=== PATIENT | female | born 1975 | race Caucasian/White ===

== ENCOUNTER → 2020-09-11 13:44 | Outpatient (BNVA) | payer MEDICAID, SELFPAY | PROVIDERS: PCP Internal Medicine Geriatric Medicine; Visit Provider Nurse Practitioner Family | DX: M46.1 Sacroiliitis, not elsewhere classified (principal); Z79.899 Other long term (current) drug therapy | CPT/HCPCS: 99212 ==

== ENCOUNTER 2021-01-08 10:49 | Day surgery (SDC) | payer MEDICAID, SELFPAY ==
--- NOTE | 2021-01-07 15:44 | HO.ANESPROP2 ---
Documented by User: Lupis Colindres 01/07/21 15:45 HPI - Anesthesia Eval Consult details Narrative: 45yo F for Left Sacroiliac Joint Steroid Injection PMFSH Active Problems Active Problems: All Active Problems (Updated 09/11/20 @ 14:33 by Ashley Jensen NP) Sacroiliitis (Acute) Past Medical History Medical History (Updated 01/08/21 @ 11:44 by Peggy Madrid RN) Carpal tunnel syndrome on right No significant past medical history Surgical History Surgical History (Updated 01/08/21 @ 11:44 by Peggy Madrid RN) History of appendectomy Social History Social History Patient Tobacco Use Status: Never used Tobacco Use of substances other than those prescribed or required for medical reasons: Yes Are you DNR?: No Advance Directives: No Advance Directives Information Provided: Yes Recently lost weight without trying: No Nutrition Risks: No Nutritional Risk Patient : No Meds Allergies Allergy/AdvReac Type Severity Reaction Status Date / Time No Known Allergies Allergy Verified 09/11/20 13:56 Exam Exam Date and Time: January 07, 2021 1544 Assessment and Plan Assessment Anesthesia Assessment: Chart Reviewed Documented by User: Jose Antonio Damon MD 01/08/21 14:26 PMFSH Past Medical History Medical History (Updated 01/08/21 @ 11:44 by Peggy Madrid RN) Carpal tunnel syndrome on right No significant past medical history Family History Family history of problems with anesthesia: No Surgical History Surgical History (Updated 01/08/21 @ 11:44 by Peggy Madrid RN) History of appendectomy History of Problems with Anesthesia: No Social History Social History Patient Tobacco Use Status: Never used Tobacco Use of substances other than those prescribed or required for medical reasons: Yes Are you DNR?: No Advance Directives: No Advance Directives Information Provided: Yes Recently lost weight without trying: No Nutrition Risks: No Nutritional Risk Patient : No Meds Allergies Allergy/AdvReac Type Severity Reaction Status Date / Time No Known Allergies Allergy Verified 09/11/20 13:56 Exam Airway Mallampati Class: I TM Dist: >3cm Neck ROM: Full Loose/Missing/Broken Teeth: No Heart: ok Lungs: ok Assessment and Plan Assessment Anesthesia Assessment: Anesthesia Plan Discussed and Chart Reviewed Final Anesthetic Review NPO: Yes ASA Class: I Final Preanesthetic Review: No Changes in Pt Med Stat, Meds/Allgs Chart Reviewed, Consent Obtained/Reviewed and Anes Risks/Benef Reviewed Patient Risk: Low Anesthetic Plan Anesthetic Plan: MAC: and Agree w/ Assess. and Plan Disposition: Standard PACU
--- NOTE | ~2021-01-08 | FL_ITS ---
EXAMINATION: XR FLUOROSCOPY WITH IMAGES CLINICAL INFORMATION: Pain. Left SI joint injection. COMPARISON: Fluoroscopic spot views 05/14/2019 TECHNIQUE: Fluoroscopy performed by Dr. Jorge Howell. Fluoroscopy time: 0.1 minutes DAP: 1.1 Gycm2 Images: 1 FINDINGS: There is spinal needle overlying lower left SI joint. There is contrast in the periarticular soft tissues with probable early intra-articular contrast. FL/FL guidance in OR IMPRESSION: Fluoroscopy for pain management procedure.
[2021-01-08 11:47] VITALS: BMI 24.1
[2021-01-08 11:52] VITALS: BP 108/72; PULSE 60; RESP 16; TEMP 36.6; O2SAT 99
[2021-01-08] MEDS: Lactated Ringers 1,000 ML 100 ML IVCONT (12:06)
[2021-01-08 12:07] LABS: UPreg QC Valid YES; Urine Pregnancy NEGATIVE (NEGATIVE)
--- NOTE | 2021-01-08 14:14 | MHC.SHP ---
Pre-Procedural Eval Section A Date of Service: 01/08/21 Section B Chief Complaint: Sacroiliitis Details of Present Illness: As above Relevant Family History (Specify if Yes): No Relevant Social History: None Present Medications: None Medical History: No relevant PMH History of Previous Operations: No relevant previous surgery Allergies: Allergies Allergy/AdvReac Type Severity Reaction Status Date / Time No Known Allergies Allergy Verified 09/11/20 13:56 Review of Systems Sugical H&P ROS: Negative: Constitution, Cardiovascular, Respiratory, Neurological, Psychiatric, Hem-Onc, Allergic/Immunologic, Gastrointestinal, Genitourinary, Musculoskeletal, Integumentary, Endocrine and Eyes/Ears/Nose/Throat Exam Surgical H&P Exam: Normal: HEENT, Normal: Heart, Normal: Lungs, Normal: Extremities, Normal: Abdomen, Normal: Skin and Normal: Neurological Plan Diagnosis/Plan: Unchanged I have reviewed the history and physical and performed a pertinent physical examination on my patient. No changes have occurred unless specified.
--- NOTE | 2021-01-08 14:49 | P.BOP_ITS ---
Brief Operative Note Date of Service: 01/08/21 Pre-op diagnosis: Sacroiliitis Post-op diagnosis: same Procedure: Sacroiliac joint injection left Implants: None Surgeon: Jorge Howell MD Anesthesia: MAC Was an Director Speech And Hearing used for this Procedure?: No Estimated blood loss (mL): 0 Pathology: none sent Condition: stable Disposition: PACU
--- NOTE | 2021-01-08 14:51 | P.OP_ITS ---
Operative Note Operative Note Date of Service: 01/08/21 Narrative: Meg is very pleasant 42 is 5 years old female who came today to the operating room with complains on lower back pain in the left side. She was diagnosed with sacroiliitis today he she came here to have sacroiliac joint inj ection on left under sedation. Informed consent was obtained and after that the patient came to the operating room she was positioned prone on operating table [place] side of physiology monitors were applied and patient was moderately sedated. Time-out was performed delineating correct name and date of of the patient, site and side of the procedure, allergies, need for DVT prophylaxis, ne ed of antibiotics which is none. After that sterilely draped C-arm was brought over the operating field and sq picture left sacroiliac joint was demonstrated on the screen , the C-arm was tilted contralateral to the right and slightly to the foot to accommodate patient's pronounced lordosis. Significant left sacroiliac joint instability with big gap between sacral and iliac bone was noted on the screen. Local anesthetic was injected 3 cm medial to the projection of the sacroiliac joint silhouette at its lower portion. After that 22 gauge 3-1/2 inch needle was driven to were the sacroiliac joint in tunnel vision fashion. After needle entered the joint thrombosis sensation was felt the needle penetrating joint capsule. After that small amount of the contrast was injected into the needle demonstrating intra-articular spread of the contrast and slight periarticular spread of the contrast. Upon completion of the contrast injection 4 cc of bupivacaine mixed with Kenalog 40 mg was injected into the needle. After that the needle was removed sterile dressing was applied patient tolerated procedure well she was awaken taking out of the the operating room to recovery room where she recovered uneventfully she went home without immediate complications.
[2021-01-08 14:57] VITALS: BP 100/80; PULSE 84; RESP 18; TEMP 36.3; O2SAT 99
[2021-01-08 15:10] VITALS: BP 111/75; PULSE 74; RESP 16; O2SAT 97
== END 2021-01-08 15:19 ==
LOC: HO.SSS 10:49
PROVIDERS: Nurse Practitioner; PCP Internal Medicine Geriatric Medicine; Visit Provider Anesthesiology
PROC: 3E0U33Z Introduction of Anti-inflammatory into Joints, Percutaneous Approach (ICD-10-PCS; CPT 27096; principal; 2021-01-08 12:10)
DX: M46.1 Sacroiliitis, not elsewhere classified (principal); M53.2X8 Spinal instabilities, sacral and sacrococcygeal region; M54.5 Low back pain
CPT/HCPCS: 27096; 81025; J2250; J3010; J3300; Q9967

== ENCOUNTER → 2021-05-24 13:49 | Outpatient (BNVA) | payer MEDICAID, SELFPAY | PROVIDERS: PCP Internal Medicine Geriatric Medicine; Referring Provider Internal Medicine Geriatric Medicine; Visit Provider Internal Medicine | DX: R07.2 Precordial pain (principal) | CPT/HCPCS: 93005; 99202 ==

== ENCOUNTER 2022-04-14 10:58 | Outpatient (REF) | payer MEDICAID, SELFPAY ==
--- NOTE | ~2022-04-14 | XR_ITS ---
EXAMINATION: XR FACIAL BONES CLINICAL INFORMATION: Injury and pain left side of facial bones. Trauma. Headache. COMPARISON: None TECHNIQUE: 3 views of the facial bones were obtained. FINDINGS: There is question of a fracture of the floor of the left orbit. This is seen on the Workman view only. No other fracture. No dislocation. Visualized paranasal sinuses are clear. XR/XR facial bones <3V IMPRESSION: Question left orbital floor fracture. This could be better evaluated with CT of the facial bones if clinically indicated. Findings will be communicated by the [place] work flow gas or water meter installer.
== END 2022-04-14 10:59 | disposition home or self-care (01) ==
LOC: HO.XRAY 10:58
PROVIDERS: PCP Internal Medicine Geriatric Medicine; Visit Provider Internal Medicine Geriatric Medicine
DX: R51.9 Headache, unspecified (principal); Z87.828 Personal history of other (healed) physical injury and trauma
CPT/HCPCS: 70140

== ENCOUNTER 2023-09-07 13:28 | Outpatient (REF) | payer MEDICAID, SELFPAY ==
--- NOTE | ~2023-09-07 | XR_ITS ---
EXAMINATION: XR LEFT SHOULDER XR CERVICAL SPINE CLINICAL INFORMATION: Severe left arm/shoulder pain. COMPARISON: None available. TECHNIQUE: AP, Grashey, transscapular Y and axillary views of the left shoulder were obtained. AP, lateral, open-mouth odontoid and bilateral oblique views of the cervical spine were obtained. FINDINGS: Cervical spine: The cervical spine is imaged through the T1 vertebral body. There is relative straightening of the cervical lordosis. Vertebral body heights are maintained. There is marked intervertebral disc space narrowing at C6-C7 with anterior and posterior marginal osteophytes. There is left neural foraminal narrowing at this level. Lateral masses are symmetric. Prevertebral soft tissues are within normal limits. Left shoulder: Acromioclavicular and glenohumeral alignment is maintained. No displaced fracture or dislocation. No abnormal soft tissue calcifications. XR/XR shoulder LT min 2V IMPRESSION: Marked degenerative disc disease at C6-C7 with left neural foraminal narrowing.
--- NOTE | ~2023-09-07 | XR_ITS ---
EXAMINATION: XR LEFT SHOULDER XR CERVICAL SPINE CLINICAL INFORMATION: Severe left arm/shoulder pain. COMPARISON: None available. TECHNIQUE: AP, Grashey, transscapular Y and axillary views of the left shoulder were obtained. AP, lateral, open-mouth odontoid and bilateral oblique views of the cervical spine were obtained. FINDINGS: Cervical spine: The cervical spine is imaged through the T1 vertebral body. There is relative straightening of the cervical lordosis. Vertebral body heights are maintained. There is marked intervertebral disc space narrowing at C6-C7 with anterior and posterior marginal osteophytes. There is left neural foraminal narrowing at this level. Lateral masses are symmetric. Prevertebral soft tissues are within normal limits. Left shoulder: Acromioclavicular and glenohumeral alignment is maintained. No displaced fracture or dislocation. No abnormal soft tissue calcifications. XR/XR cervical spine 4V IMPRESSION: Marked degenerative disc disease at C6-C7 with left neural foraminal narrowing.
== END 2023-09-07 13:29 | disposition home or self-care (01) ==
LOC: HO.HHCX 13:28
PROVIDERS: Visit Provider Pediatrics
DX: M54.2 Cervicalgia (principal)
CPT/HCPCS: 72050; 73030

== ENCOUNTER 2023-10-07 13:06 | Outpatient (REF) | payer MEDICAID, SELFPAY ==
--- NOTE | ~2023-10-07 | MR_ITS ---
EXAMINATION: MR CERVICAL SPINE WITHOUT CONTRAST CLINICAL INFORMATION: 47-year-old with self-reported cervical pain, with left-sided radicular symptoms. COMPARISON: None available. TECHNIQUE: MRI of the cervical spine was obtained using routine sequences without contrast. TECHNICAL NOTE: Motion limited exam. FINDINGS: ALIGNMENT: There is straightening of the cervical spine, which is nonspecific. There is no spondylolisthesis or retrolisthesis. CRANIOCERVICAL JUNCTION/C1-C2 ARTICULATIONS: Intact and aligned. VISUALIZED INTRACRANIAL STRUCTURES: Within normal limits. VERTEBRAL BODIES: Vertebral body heights are well-maintained. DISC SPACES AND ENDPLATES: [id number] disc space height loss is noted at C6-C7 with moderate anterior marginal spondylosis. Mild disc volume loss noted at C5-C6 with mild anterior marginal spondylosis. Minor anterior marginal spondylosis at C4-C5. Loss of T2-weighted signal from the intervertebral discs noted mainly between C4-C5 and C6-C7 inclusive consistent with discogenic degenerative changes. Tiny Schmorl's nodes noted at C6-C7. BONE MARROW: Type I degenerative marrow signal changes noted asymmetric to the left at C6-C7. A 1.2 cm benign vertebral hemangioma within the T2 vertebral body. No suspicious marrow replacing process or bone marrow edema. C2-C3: No disc herniation or canal stenosis. No significant DJD or neural foraminal stenosis. C3-C4: No disc herniation or canal stenosis. No significant DJD or foraminal stenosis. C4-C5: Shallow central disc protrusion with minimal indentation of the ventral thecal sac without cord impingement or canal stenosis. No significant DJD or neural foraminal stenosis. C5-C6: Broad-based disc osteophyte complex noted with flattening of the ventral dural sac asymmetric to the left without cord impingement. Mild ligamentum flavum thickening is noted with mild spinal canal stenosis. Mild uncovertebral spurring is noted bilaterally without significant facet joint arthropathy. No significant neural foraminal stenosis. C6-C7: Broad-based disc osteophyte complex noted with flattening of the ventral dural sac without cord compression. Mild ligamentum flavum thickening is noted with moderate spinal canal stenosis. There is uncovertebral spurring left more than right and minor facet arthropathy with mild right and [id number] left-sided neural foraminal stenosis. C7-T1: No disc herniation or canal stenosis. No significant DJD or neural foraminal stenosis. SPINAL CORD: Limited assessment due to motion artifact. No definite focal lesion, edema or syrinx identified. Normal spinal cord caliber. EXTRACRANIAL SOFT TISSUES: The visualized extracranial head/neck soft tissues are unremarkable within the limitations of the study. Signal voids are seen within the visualized major neck vessels. No prevertebral soft tissue edema. MR/MR cervical spine wo con IMPRESSION: 1. Straightening of the cervical spine with discogenic degenerative changes primarily at C6-C7 and to a lesser degree at C5-C6 with spondylosis at these levels. 2. Disc osteophyte complex at C6-C7 with moderate spinal canal stenosis and disc osteophyte complex at C5-C6 mild spinal canal stenosis at C5-C6 without cord impingement. 3. Uncovertebral arthrosis at C6-C7 with [id number] left-sided and mild right-sided neural foraminal stenosis at this level. 4. Shallow central disc protrusion at C4-C5 without cord impingement or canal stenosis. 5. Motion limited exam.
== END 2023-10-07 13:07 | disposition home or self-care (01) ==
LOC: HO.MRI 13:06
PROVIDERS: PCP Internal Medicine Geriatric Medicine; Visit Provider Internal Medicine Geriatric Medicine
DX: M54.12 Radiculopathy, cervical region (principal); M47.12 Other spondylosis with myelopathy, cervical region; R29.898 Other symptoms and signs involving the musculoskeletal system
CPT/HCPCS: 72141

== ENCOUNTER 2024-02-23 10:43 | Outpatient (REF) | payer MEDICAID, SELFPAY ==
--- NOTE | ~2024-02-23 | MM_ITS ---
EXAMINATION: MM SCREENING DIGITAL BREAST TOMOSYNTHESIS, BILATERAL CLINICAL INFORMATION: Screening. Asymptomatic. COMPARISON: Mammography: Comparison is made with available priors TECHNIQUE: Digital breast tomosynthesis is performed in both the craniocaudal and mediolateral oblique views along with computer-aided detection (CAD). Synthesized 2D images are generated from the tomosynthesis. FINDINGS: The breasts are heterogeneously dense, which may obscure small masses (ACR BI-RADS breast composition Category c). There are no significant masses, abnormal calcifications, or other abnormalities. MM/MM tomosynthesis screening BI IMPRESSION: No mammographic evidence of malignancy. ASSESSMENT: BI-RADS BI-RADS 1 - Negative RECOMMENDATION: Routine annual mammography screening. 1 year F/U This examination should not preclude the clinical evaluation of a suspicious palpable abnormality. This patient's information was entered into a reminder system with a target due date for their next mammogram. Electronically signed by: Jalyn Muhammad DO 03/15/2024 10:46 PM EDT
== END 2024-02-23 10:44 | disposition home or self-care (01) ==
LOC: HO.MAMMO 10:43
PROVIDERS: PCP Internal Medicine Geriatric Medicine; Visit Provider Internal Medicine Geriatric Medicine
DX: Z12.31 Encounter for screening mammogram for malignant neoplasm of breast (principal)
CPT/HCPCS: 77063; 77067

== ENCOUNTER → 2024-02-23 11:00 | Outpatient (BNV) | payer MEDICAID, SELFPAY | PROVIDERS: PCP Internal Medicine Geriatric Medicine; Visit Provider Internal Medicine | DX: Z12.31 Encounter for screening mammogram for malignant neoplasm of breast (principal) | CPT/HCPCS: 77063; 77067 ==

== ENCOUNTER 2024-12-19 09:23 | Outpatient (AMB) | payer MEDICAID, SELFPAY ==
--- NOTE | 2024-12-19 09:25 | A.OFFVIS_ITS ---
Vital Signs 12/19/24 09:30 Height 5 ft 4 in Weight 128 lb 6 oz BMI 22.0 BP 118/75 Blood Pressure Location Rt brachial Position Sitting Pulse 65 Pulse Source Pulse Oximeter Pulse Oximetry (%) 100 Oxygen Delivery Method Room Air Intake Visit Reasons: Left SI Joint pain Power Grader Operator Required: Yes Power Grader Operator Language: Founder And Chief Executive Officer Services: Power Grader Operator Present Power Grader Operator Name: Ninoska Information Interpreted: non-clinical & clinical Accompanied by: Self / Same As Patient Allergies No Known Allergies Allergy (Verified 12/19/24 09:33) HPI Comments Details: The patient is a 49-year-old female presenting with recurrence of pain associated with sacroiliac joint dysfunction. She was last seen in our office in [address] Howell and received a diagnostic injection in the left sacroiliac joint approximately 4 years ago, which provided significant pain relief until recently. 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 The pain is described as constant, aching, tight, and sometimes sharp, with a severity of 8 out of 10. She denies any history of diabetes and has not engaged in physical therapy or post acute care nurse practitioner previously. The patient also has a mild leg length discrepancy, with the left leg being longer, which may contribute to her sacroiliac joint pain. She has not received any chiropractic adjustments or massage therapy to address this issue. Additionally, the patient has neck pain, with cervical osteophytes and arthritis in the neck, which have not been addressed yet. - Onset: Recurrence of pain after 4 years of relief from prior injection - Quality: Constant, aching, tight, sometimes sharp, throbbing, dull - Location: Left buttock radiating to left lateral hip up to the knee levels - Severity: 8 out of 10 - Exacerbating factors: Prolonged sitting, such as during work as a school standards coach - Affect: Pain impacts daily activities, particularly driving - Analgesia: No current pain medications used, pain level at 8 out of 10 - Adverse Effects: None reported - Activities of Daily Living: Pain increases with prolonged sitting, affecting work as a school standards coach - Aberrant Drug Related Behaviors: None reported Past Procedures: 01/08/21: Left Diagnostic SIJ injection-100% pain relief for [address] Howell 01/08/21: Meg is very pleasant 42 is 5 years old female who came today to the operating room with complains on lower back pain in the left side. She was diagnosed with sacroiliitis today he she came here to have sacroiliac joint injection on left under sedation. Informed consent was obtained and after that the patient came to the operating room she was positioned prone on operating table New Zealander side of physiology monitors were applied and patient was moderately sedated. Time-out was performed delineating correct name and date of of the patient, site and side of the procedure, allergies, need for DVT prophylaxis, need of antibiotics which is none. After that sterilely draped C-arm was brought over the operating field and sq picture left sacroiliac joint was demonstrated on the screen , the C-arm was tilted contralateral to the right and slightly to the foot to accommodate patient's pronounced lordosis. Significant left sacroiliac joint instability with big gap between sacral and iliac bone was noted on the screen. Local anesthetic was injected 3 cm medial to the projection of the sacroiliac joint silhouette at its lower portion. After that 22 gauge 3-1/2 inch needle was driven to were the sacroiliac joint in tunnel vision fashion. After needle entered the joint thrombosis sensation was felt the needle penetrating joint capsule. After that small amount of the contrast was injected into the needle demonstrating intra-articular spread of the contrast and slight periarticular spread of the contrast. Upon completion of the contrast injection 4 cc of bupivacaine mixed with Kenalog 40 mg was injected into the needle. After that the needle was removed sterile dressing was applied patient tolerated procedure well she was awaken taking out of the the operating room to recovery room where she recovered uneventfully she went home without immediate complications. [facility] Medical History (Updated 12/19/24 @ 22:12 by CEDRIC Low) Myofascial pain syndrome Urge incontinence of urine Cervical radiculitis Anxiety Neck pain Chest pain Pain in lower limb Edema of lower extremity Low back pain radiating to both legs Chronic pelvic pain in female Carpal tunnel syndrome on right No significant past medical history Surgical History (Updated 12/19/24 @ 09:42 by Chloe Montoya) H/O tubal ligation History of appendectomy Family History Father No problems noted. Mother No problems noted. Social History Patient Tobacco Use Status: Never used Tobacco Review of Systems Const All systems reviewed & are unremarkable except as noted in HPI and below Physical Exam Vital Signs: Last Vital Signs Pulse 65 12/19/24 09:30 BP 118/75 12/19/24 09:30 Pulse Ox 100 12/19/24 09:30 Oxygen Delivery Method Room Air 12/19/24 09:30 BMI result Body Mass Index 22.0 General: Appears afebrile. Alert and oriented. Mood and affect appropriate. Follows and participates in conversation appropriately. Respiratory effort is unlabored. No cough. Able to transition from sit to stand unassisted. Ambulates with bilaterally normal heel strike and toe off. General: Yes no CVA tenderness Back/Spine/Pelvis Other: Limited lumbar ROM due to pain. Lumbar extension reproduces mild-moderate pain, flexion and bending reproduces mild pain. Demonstrates 5/5 strength of quadriceps bilaterally as well as flexion/dorsiflexion of bilateral feet against resistance. 2+ pedal pulses bilaterally. Straight leg rise with dorsiflexion negative bilaterally. +2 patellar and achilles reflexes bilaterally. Facet loading test positive bilaterally. Left leg is mildly longer than right, pain on left buttock radiating to left side, no pain on right side, unequal leg length noted. Aba sign, Jhoan?s, Gaenslen, Pelvic compression and Stinchfield tests are positive on the left. No groin pain with I/E hip rotations. Valsalva maneuver negative. Back: no CVA tenderness Cervical Spine: cervical ROM normal, No Lhermitte's sign positive, cervical muscular tenderness, pain with cervical ROM, No Cervical spine tenderness and No step off deformity Thoracic/Lumbar Spine: thoracic and lumbar spine normal to inspection, No Thoracic/lumbar spine scar(s), Lasegue's sign negative, straight leg raise negative bilaterally, pain with thoraco-lumbar ROM, paraspinal muscle tenderness, No thoracic spinal tenderness and No lumbar spinal tenderness Sacroiliac joints: on the right nontender and on the left tender to palpation Extrem General: Yes capillary refill normal, Yes no clubbing, cyanosis or edema and Yes no calf tenderness Results Reviewed Results Reviewed: MR CERVICAL SPINE WITHOUT CONTRAST 10/07/23 CLINICAL INFORMATION: 47-year-old with self-reported cervical pain, with left-sided radicular symptoms. COMPARISON: None available. TECHNIQUE: MRI of the cervical spine was obtained using routine sequences without contrast. TECHNICAL NOTE: Motion limited exam. FINDINGS: ALIGNMENT: There is straightening of the cervical spine, which is nonspecific. There is no spondylolisthesis or retrolisthesis. CRANIOCERVICAL JUNCTION/C1-C2 ARTICULATIONS: Intact and aligned. VISUALIZED INTRACRANIAL STRUCTURES: Within normal limits. VERTEBRAL BODIES: Vertebral body heights are well-maintained. DISC SPACES AND ENDPLATES: Brzplqcu-rx-sloiug disc space height loss is noted at C6-C7 with moderate anterior marginal spondylosis. Mild disc volume loss noted at C5-C6 with mild anterior marginal spondylosis. Minor anterior marginal spondylosis at C4-C5. Loss of T2-weighted signal from the intervertebral discs noted mainly between C4-C5 and C6-C7 inclusive consistent with discogenic degenerative changes. Tiny Schmorl's nodes noted at C6-C7. BONE MARROW: Type I degenerative marrow signal changes noted asymmetric to the left at C6-C7. A 1.2 cm benign vertebral hemangioma within the T2 vertebral body. No suspicious marrow replacing process or bone marrow edema. C2-C3: No disc herniation or canal stenosis. No significant DJD or neural foraminal stenosis. C3-C4: No disc herniation or canal stenosis. No significant DJD or foraminal stenosis. C4-C5: Shallow central disc protrusion with minimal indentation of the ventral thecal sac without cord impingement or canal stenosis. No significant DJD or neural foraminal stenosis. C5-C6: Broad-based disc osteophyte complex noted with flattening of the ventral dural sac asymmetric to the left without cord impingement. Mild ligamentum flavum thickening is noted with mild spinal canal stenosis. Mild uncovertebral spurring is noted bilaterally without significant facet joint arthropathy. No significant neural foraminal stenosis. C6-C7: Broad-based disc osteophyte complex noted with flattening of the ventral dural sac without cord compression. Mild ligamentum flavum thickening is noted with moderate spinal canal stenosis. There is uncovertebral spurring left more than right and minor facet arthropathy with mild right and xiywjfjq-vh-qakydk left-sided neural foraminal stenosis. C7-T1: No disc herniation or canal stenosis. No significant DJD or neural foraminal stenosis. SPINAL CORD: Limited assessment due to motion artifact. No definite focal lesion, edema or syrinx identified. Normal spinal cord caliber. EXTRACRANIAL SOFT TISSUES: The visualized extracranial head/neck soft tissues are unremarkable within the limitations of the study. Signal voids are seen within the visualized major neck vessels. No prevertebral soft tissue edema. IMPRESSION: 1. Straightening of the cervical spine with discogenic degenerative changes primarily at C6-C7 and to a lesser degree at C5-C6 with spondylosis at these levels. 2. Disc osteophyte complex at C6-C7 with moderate spinal canal stenosis and disc osteophyte complex at C5-C6 mild spinal canal stenosis at C5-C6 without cord impingement. 3. Uncovertebral arthrosis at C6-C7 with lnsypvkl-dy-nnywow left-sided and mild right-sided neural foraminal stenosis at this level. 4. Shallow central disc protrusion at C4-C5 without cord impingement or canal stenosis. 5. Motion limited exam. Assessment & Plan Assessment & Plan (1) Sacroiliitis: Code(s): M46.1 - Sacroiliitis, not elsewhere classified Category: Medical (2) Spondylosis of lumbosacral joint: Code(s): M47.817 - Spondylosis without myelopathy or radiculopathy, lumbosacral region Category: Medical (3) Chronic low back pain: Code(s): M54.50 - Low back pain, unspecified; G89.29 - Other chronic pain Category: Medical (4) Sacroiliac joint pain: Code(s): M53.3 - Sacrococcygeal disorders, not elsewhere classified Category: Medical (5) Sacroiliitis: Code(s): M46.1 - Sacroiliitis, not elsewhere classified Category: Medical (6) Spondylosis of lumbosacral joint: Code(s): M47.817 - Spondylosis without myelopathy or radiculopathy, lumbosacral region Category: Medical (7) Chronic low back pain: Code(s): M54.50 - Low back pain, unspecified; G89.29 - Other chronic pain Category: Medical (8) Neck pain: Code(s): M54.2 - Cervicalgia Category: Medical Plan The plan includes administering a steroid injection to the left sacroiliac joint with local and fluoroscopy to provide long-term pain relief. Expectations, risks and benefits were reviewed. Patient is aware she will be contacted to schedule this procedure. The patient is advised to undergo chiropractic adjustments to address the leg length discrepancy, which may alleviate the sacroiliac joint pain. X-rays will be updated to assess the current condition of the sacroiliac joint and lumbar spine. Records from [facility] will be obtained to review past treatments and interventions. All questions and concerns have been answered and patient agreed with the treatment plan. Follow-up x-ray results/after injections and sooner as needed Patient was informed and verbally consented to the use of an ambient scribe for clinic note documentation during this visit. Orders: Orders XR lumbar spine 4V min Today G89.29 - Other chronic pain, M46.1 - Sacroiliitis, not elsewhere classified, M47.817 - Spondylosis without myelopathy or radiculopathy, lumbosacral region, M54.50 - Low back pain, unspecified XR sacroiliac joint min 3V Today M46.1 - Sacroiliitis, not elsewhere classified, M53.3 - Sacrococcygeal disorders, not elsewhere classified Referrals Chiropractic Referral G89.29 - Other chronic pain, M46.1 - Sacroiliitis, not elsewhere classified, M47.817 - Spondylosis without myelopathy or radiculopathy, lumbosacral region, M53.3 - Sacrococcygeal disorders, not elsewhere classified, M54.50 - Low back pain, unspecified Coding Level of Care Code New Pt Level 4 (92834) Diagnoses Sacroiliitis M46.1 Spondylosis of lumbosacral joint M47.817 Chronic low back pain M54.50; G89.29 Sacroiliac joint pain M53.3 Neck pain M54.2
[2024-12-19 09:30] VITALS: BP 118/75; PULSE 65; O2SAT 100; BMI 22.0
--- OUTSIDE RECORDS SUMMARY | 2024-12-19 10:22 | XMS_ITS | Encounter Summary ---
Author Organization [employer] Address [address] [place] [address] Care Team Providers Care Watermelon Inspector Name Role Phone Name, Yemi OZUNA Primary Care Provider [phone] Reason for Visit * Reason Onset Date Comments No Show 08/11/2023 Encounter Details Date Type Department Care Team ([facility] Contact Info) Description 08/11/2023 Telephone [facility]INE [address] [place] [address] Name, MD Yemi [address] [place] [address] No Show Social History Tobacco Use Types Packs/Day Years Used Date Smoking Tobacco: Never Passive Smoke Exposure: Never Smokeless Tobacco: Never Alcohol Use Standard Drinks/Week Comments Never 0 (1 standard drink = 0.6 oz pur e alcohol) Depression Answer Date Recorded Patient Health Questionnaire-9 Score 7 12/06/2022 Housing Stability Answer Date Recorded What is your housing situation today? I have tuan barone 05/01/[address] you li ve. Do you have problems with any of the following? None of the above 05/01/2023 Food Insecurity Answer Date Recorded Within the past 12 months, y ou worried that your food would run out before you got money to buy more: Never True 05/01/2023 Within the past 12 months,th e food you bought just didn't last and you didn't have enough money to get more: Never True 11/2022 Transportation Answer Date Recorded In the past 12 months, has l ack of transportation kept you from medical appts, meetings, work or from getting things needed for daily living? No 05/01/2023 Utilities Answer Date Recorded In the past 12 months, has t he electric, gas, oil or water company threatened to shut off services in your home? No 05/01/2023 Depression Answer Date Recorded Patient Health Questionnaire-2 Score 0 12/06/2022 Comments Unknown Sex and Gender Information Value Date Recorded Sex Assigned at Female 04/25/2022 10:31 AM EDT Legal Sex Female 10:31 AM EDT Gender Identity Female 04/25/2022 10:31 AM EDT Sexual Orientation Straight 04/25/2022 10 :31 AM EDT documented as of this encounter Miscellaneous Notes * Telephone Encounter - Tatianna Canada RN - 08/18/2023 4:46 PM EST TC placed to patient x 2 regarding message below. No answer. LM in both East Timorese and Italian to please call us back. Visit was ED f/u and should be rescheduled. Routing note back to Blue Team nurses to try again next week. Appointment notes were as follows: ED [place] apt[place] [facility] [place] Ab[place] / rectal bleeding (PHQ9, SDOH, mammo) Patient also has f/u with PCP scheduled for 09/25/23. Pt no show to [facility] appt on 08/18/23 with Jennifer Ray. * Telephone Encounter - Rosalinda Erwin - 08/18/2023 11:40 AM EST Pt no show to [facility] Site appt on 08/18/23 with Jennifer Ray. documented in this encounter Plan of Treatment Upcoming Encounters Date Type Department Care Team (Late st Contact Info) Description 01/01/2025 11:30 AM EDT Office Visit [facility] [address] [place] [address] Name, MD Yemi [address] [place] [address] documented as of this encounter Visit Diagnoses Not on filedocumented in this encounter Additional Health Concerns Assessment Noted Time PHQ-9 Depression Total Score: 7 12/07/19 23 3:32 PM EDT documented as of this encounter Care Teams Watermelon Inspector Relationship Specialty Start Date End Date Name, MD Yemi [address] [place] [address] PCP - General Family Medicine 06/26/18 documented as of this encounter
== END 2024-12-19 10:01 | disposition home or self-care (01) ==
LOC: HO.PMC 09:23
PROVIDERS: PCP Internal Medicine Geriatric Medicine; Referring Provider Family Medicine; Visit Provider Nurse Practitioner Family
DX: M46.1 Sacroiliitis, not elsewhere classified (principal); M47.817 Spondylosis without myelopathy or radiculopathy, lumbosacral region; M54.50 Low back pain, unspecified; G89.29 Other chronic pain; M53.3 Sacrococcygeal disorders, not elsewhere classified; M54.2 Cervicalgia
CPT/HCPCS: 99204

== ENCOUNTER → 2024-12-19 09:23 | Outpatient (BNVA) | payer MEDICAID, SELFPAY | PROVIDERS: PCP Internal Medicine Geriatric Medicine; Referring Provider Family Medicine; Visit Provider Nurse Practitioner Family | DX: M46.1 Sacroiliitis, not elsewhere classified (principal); M47.817 Spondylosis without myelopathy or radiculopathy, lumbosacral region; M54.50 Low back pain, unspecified; G89.29 Other chronic pain; M53.3 Sacrococcygeal disorders, not elsewhere classified; M54.2 Cervicalgia | CPT/HCPCS: 99212 ==

== ENCOUNTER 2024-12-31 09:41 | Outpatient (REF) | payer MEDICAID, SELFPAY ==
--- OUTSIDE RECORDS SUMMARY | 2024-12-31 10:13 | XMS_ITS | Encounter Summary ---
Author Organization [employer] Address [address] [facility] [address] [facility] [address] [place] [address] Care Team Providers Care Virtual Recruiter Name Role Phone Name, Yemi OZUNA Primary Care Provider [phone] Reason for Visit * Reason Onset Date Comments No Show 08/11/2023 Encounter Details Date Type Department Care Team ([facility] Contact Info) Description 08/11/2023 Telephone [facility] [address] [place] [address] Name, MD Yemi [address] [place] [address] No Show Social History Tobacco Use Types [...] message below. No answer. LM in both French and Nepali to please call us back. Visit was ED f/u and should be rescheduled. Routing note back to Blue Team nurses to try again next week. Appointment notes were as follows: ED [place] [facility] [place] Abdominal [place] / rectal [...] Care Team (Late st Contact Info) Description 03/27/2025 11:15 AM EDT Office Visit [facility] [address] [place] [address] Name, MD Yemi [address] [place] [address] documented as of this encounter Visit Diagnoses Not on filedocumented in this encounter Additional Health Concerns Assessment Noted Time PHQ-9 Depression Total Score: 7 12/07/19 23 3:32 PM EDT documented as of this encounter Care Teams Virtual Recruiter Relationship Specialty Start Date End Date Name, MD Yemi [address] [place] [address] PCP - General Family Medicine 06/26/18 documented as of this encounter
[2024-12-31 12:46] LABS: Alanine Aminotransferase 15 U/L (0-31); Albumin Level 4.0 g/dL (3.5-5.0); Alkaline Phosphatase 56 U/L (39-117); Anion Gap 10 (12-20); Aspartate Amino Transferase 24 U/L (5-31); Blood Urea Nitrogen 9 mg/dL (9-16); Calcium 8.8 mg/dL (8.4-10.2); Carbon Dioxide 27 mmol/L (22-29); Chloride 107 mmol/L (96-108); Cholesterol 184 mg/dL (<200); Estimated Glomerular Filt Rate > 60; HDL Cholesterol 67 mg/dL (>40); Potassium 4.0 mmol/L (3.3-5.1); Sodium 140 mmol/L (135-145); Total Protein 6.8 g/dL (6.5-8.0); Triglycerides 116 mg/dL (<150)
== END 2024-12-31 09:42 | disposition home or self-care (01) ==
LOC: HO.HHCL 09:41
PROVIDERS: PCP Internal Medicine Geriatric Medicine; Visit Provider Internal Medicine Geriatric Medicine
DX: Z13.1 Encounter for screening for diabetes mellitus (principal); Z13.220 Encounter for screening for lipoid disorders
CPT/HCPCS: 36415; 80053; 80061

== ENCOUNTER 2025-01-01 11:17 | Outpatient (REF) | payer MEDICAID, SELFPAY ==
--- NOTE | ~2025-01-01 | XR_ITS ---
EXAMINATION: X-ray lumbar spine. CLINICAL INFORMATION: Sacroiliitis. TECHNIQUE: AP oblique and lateral views. COMPARISON: November 23, 2017. FINDINGS: Levoconvex curvature of the lumbar spine. Facet joint hypertrophy at L5-S1 and to a lesser extent L4-5. Small marginal osteophyte formation at L4-5 and L5-S1. Endplate sclerosis at L4-5 and L5-S1 and to a lesser extent in the thoracolumbar spine. No acute cortical disruption. No gross malalignment. XR/XR lumbar spine 4V min IMPRESSION: Multilevel spondylosis and levoconvex rotoscoliosis without acute fracture or gross listhesis. Electronically signed by: Sravan Asher MD 01/01/2025 01:09 PM EDT
--- NOTE | ~2025-01-01 | XR_ITS ---
EXAMINATION: XR SACROILIAC JOINTS CLINICAL INFORMATION: M46.1 - Sacroiliitis, not elsewhere classified COMPARISON: None available. TECHNIQUE: 3 views of the sacroiliac joints FINDINGS: No acute cortical disruption. No gross malalignment. No lytic or blastic lesions. Sutures overlapping the right lower abdomen and pelvis region. Facet joint hypertrophy at L5-S1. XR/XR sacroiliac joint min 3V IMPRESSION: Negative x-ray, sacroiliac joints. Electronically signed by: Sravan Asher MD 01/01/2025 01:11 PM EDT
--- OUTSIDE RECORDS SUMMARY | 2025-01-01 12:30 | XMS_ITS | Encounter Summary ---
Author Organization [employer] Address [address] [facility] [address] [place] [address] Care Team Providers Care Attacher Name Role Phone Name, Yemi OZUNA Primary Care Provider [phone] Reason for Visit * Reason Onset Date Comments No Show 08/11/2023 Encounter Details Date Type Department Care Team ([facility] Contact Info) Description 08/11/2023 Telephone [facility] MED[facility]INE [address] [place] [address] Name, MD Yemi [address] [place] [address] No Show Social History Tobacco Use Types [...] message below. No answer. LM in both Namibian and Faroese to please call us back. Visit was ED f/u and should be rescheduled. Routing note back to Blue Team nurses to try again next week. Appointment notes were as follows: ED follow up apt., ED visti at [facility] [place]08/2023 for Abdominal pain / rectal [...] Description 03/27/2025 11:15 AM EDT Office Visit [facility] [address] [place] [address] Name, MD Yemi [address] [place] [address] documented as of this encounter Visit Diagnoses Not on filedocumented in this encounter Additional Health Concerns Assessment Noted Time PHQ-9 Depression Total Score: 7 12/07/19 23 3:32 PM EDT documented as of this encounter Care Teams Attacher Relationship Specialty Start Date End Date Name, MD Yemi [address] [place] [address] PCP - General Family Medicine 06/26/18 documented as of this encounter
== END 2025-01-01 11:18 | disposition home or self-care (01) ==
LOC: HO.XRAY 11:17
PROVIDERS: PCP Internal Medicine Geriatric Medicine; Visit Provider Nurse Practitioner Family
DX: M46.1 Sacroiliitis, not elsewhere classified (principal); M47.817 Spondylosis without myelopathy or radiculopathy, lumbosacral region; M54.50 Low back pain, unspecified; G89.29 Other chronic pain; M53.3 Sacrococcygeal disorders, not elsewhere classified
CPT/HCPCS: 72110; 72202

== ENCOUNTER → 2025-01-01 11:21 | Outpatient (BNV) | payer MEDICAID, SELFPAY | PROVIDERS: PCP Internal Medicine Geriatric Medicine; Visit Provider Radiology Diagnostic Radiology | DX: M47.816 Spondylosis without myelopathy or radiculopathy, lumbar region (principal); M41.86 Other forms of scoliosis, lumbar region; M46.1 Sacroiliitis, not elsewhere classified | CPT/HCPCS: 72110; 72202 ==

== ENCOUNTER 2025-03-25 07:35 | Outpatient (REF) | payer MEDICAID, SELFPAY ==
--- NOTE | ~2025-03-25 | FL_ITS ---
EXAMINATION: FL GUIDANCE ONLY HISTORY: M46.1 - Sacroiliitis, not elsewhere classified COMPARISON: None available. TECHNIQUE: Fluoroscopy time: 0.1 minutes. Cumulative Dose: 0.639 mGy. DAP: 0.0111 mGym2 Images: 2. FINDINGS: Fluoroscopic spot films of the left hemipelvis demonstrate a needle and contrast material in the region of the sacroiliac joint. FL/FL guidance in treatment room IMPRESSION: Fluoroscopy during procedure. Please see procedure report for additional information. Electronically signed by: Jose Wise MD 03/25/2025 12:31 PM EDT
--- OUTSIDE RECORDS SUMMARY | 2025-03-25 07:40 | XMS_ITS | Encounter Summary ---
Author Organization [employer] Address [address] [facility] [address] [place] [address] Care Team Providers Care Nutrition Manager Name Role Phone Name, Yemi OZUNA Primary Care Provider [phone] Reason for Visit * Reason Onset Date Comments No Show 08/11/2023 Encounter Details Date Type Department Care Team ([facility] Contact Info) Description 08/11/2023 Telephone [facility] MED[facility]INE [address] [place] [address] Name, MD Yemi [address] [place] [address] No Show Social History Tobacco Use Types [...] message below. No answer. LM in both Greenlandic and Guatemalan to please call us back. Visit was ED f/u and should be rescheduled. Routing note back to Blue Team nurses to try again next week. Appointment notes were as follows: ED follow up apt., ED [place] [facility] [place]23 for Abdominal pain [...] Description 03/27/2025 11:15 AM EDT Office Visit [facility] MED[facility]INE [address] [place] [address] Name, MD Yemi [address] [place] [address] documented as of this encounter Visit Diagnoses Not on filedocumented in this encounter Additional Health Concerns Assessment Noted Time PHQ-9 Depression Total Score: 7 12/07/19 23 3:32 PM EDT documented as of this encounter Care Teams Nutrition Manager Relationship Specialty Start Date End Date Name, MD Yemi [address] [place] [address] PCP - General Family Medicine 06/26/18 documented as of this encounter
--- OUTSIDE RECORDS SUMMARY | 2025-03-25 07:40 | XMS_ITS | Encounter Summary ---
Author Organization [employer] Address [address] [place] [address] Care Team Providers Care Microbiology Lab Analyst Name Role Phone Name, Yemi OZUNA Primary Care Provider Encounter Details Date Type Department Care Team ([facility] st Contact Info) Description 08/08/2023 Abstract [facility] MEDICINE [address] [place] [address] Name, MD Yemi [address] [place] [address] Social History Tobacco Use Types Packs/Day Years [...] AM EDT documented as of this encounter Plan of Treatment Upcoming Encounters Date Type Department Care Team (Late st Contact Info) Description 03/27/2025 11:15 AM EDT Office Visit [facility] MEDICINE [address] [place] [address] Name, MD Yemi [address] [place] [address] documented as of this encounter Visit Diagnoses Not on filedocumented in this encounter Additional Health Concerns Assessment Noted Time PHQ-9 Depression Total Score: 7 12/07/19 23 3:32 PM EDT documented as of this encounter Care Teams Microbiology Lab Analyst Relationship Specialty Start Date End Date Name, MD Yemi [address] [place] [address] PCP - General Family Medicine 06/26/18 documented as of this encounter
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
--- OUTSIDE RECORDS SUMMARY | 2025-03-25 07:40 | XMS_ITS | Encounter Summary ---
Author Organization [employer] Address [address] [facility] [address] [place] [address] Care Team Providers Care Framing Machine Tender Name Role Phone Name, Yemi OZUNA Primary Care Provider [phone] Reason for Visit * Reason Comments Med Refill Encounter Details Date Type Department Care Team ([facility] Contact Info) Description 05/22/2024 Refill [facility] [address] [place] [address] Name, MD Yemi [address] [place], [place] [phone] Chronic neck pain Social History Tobacco Use Types Packs/Day Years Used Date Smoking Tobacco: Never Passive Smoke Exposure: Never Smokeless Tobacco: Never Alcohol Use Standard Drinks/Week Comments Never 0 (1 standard drink = 0.6 oz pur e alcohol) Depression Answer Date Recorded Patient Health Questionnaire-9 Score 7 12/06/2022 Housing Stability Answer Date Recorded What is your housing situation today? I have tuan barone 10/31/[address] you li ve. Do you have problems with any of the following? None of the above 10/31/2023 Food Insecurity Answer Date Recorded Within the past 12 months, y ou worried that your food would run out before you got money to buy more: Never True 10/31/2023 Within the past 12 months,th e food you bought just didn't last and you didn't have enough money to get more: Never True 12/2023 Transportation Answer Date Recorded In the past 12 months, has l ack of transportation kept you from medical appts, meetings, work or from getting things needed for daily living? No 10/31/2023 Utilities Answer Date Recorded In the past 12 months, has t he electric, gas, oil or water company threatened to shut off services in your home? No 10/31/2023 Depression Answer Date Recorded Patient Health Questionnaire-2 [...] Description 03/27/2025 11:15 AM EDT Office Visit [facility] [address] [place] [phone] Name, MD Yemi [address] [place] [phone] documented as of this encounter Visit Diagnoses Diagnosis Chronic neck pain Cervicalgia documented in this encounter Additional Health Concerns Assessment Noted Time PHQ-9 Depression Total Score: 7 12/07/19 23 3:32 PM EDT documented as of this encounter Care Teams Framing Machine Tender Relationship Specialty Start Date End Date Name, MD Yemi [address] [place] [phone] PCP - General Family Medicine 06/26/18 documented as of this encounter
--- OUTSIDE RECORDS SUMMARY | 2025-03-25 07:40 | XMS_ITS | Encounter Summary ---
Author Organization [employer] Address [address] [place] [address] Care Team Providers Care Self Propelled Mining Machine Operator Name Role Phone Name, Yemi OZUNA Primary Care Provider [phone] Encounter Details Date Type Department Care Team (Latest Contact Info) Description 03/24/2025 Travel Social History Tobacco Use Types Packs/Day Years [...] Description 03/27/2025 11:15 AM EDT Office Visit [facility] [address] [place] [id number] Name, MD Yemi [address] [place] [id number] documented as of this encounter Visit Diagnoses Not on filedocumented in this encounter Additional Health Concerns Assessment Noted Time PHQ-9 Depression Total Score: 17 025 9:58 AM EDT documented as of this encounter Care Teams Self Propelled Mining Machine Operator Relationship Specialty Start Date End Date Name, MD Yemi [address] [place] [id number] PCP - General Family Medicine 06/26/18 documented as of this encounter
== END 2025-03-25 07:36 | disposition home or self-care (01) ==
LOC: CF 07:35
PROVIDERS: Visit Provider Anesthesiology
DX: M46.1 Sacroiliitis, not elsewhere classified (principal); M53.3 Sacrococcygeal disorders, not elsewhere classified
CPT/HCPCS: 27096; J2003; J2795; J3301; Q9967

== ENCOUNTER 2025-03-25 08:32 | Outpatient (AMB) | payer MEDICAID, SELFPAY ==
[2025-03-25 08:39] VITALS: BP 117/71; PULSE 66; RESP 18; O2SAT 99; BMI 24.5
--- NOTE | 2025-03-25 08:39 | MHC.OFFVIS ---
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 Mother No problems noted. Social History Patient Tobacco Use Status: Never used Tobacco Physical Exam Vital Signs: Last Vital Signs Pulse 66 03/25/25 08:39 Resp 18 03/25/25 08:39 BP 117/71 03/25/25 08:39 Pulse Ox 99 03/25/25 08:39 Oxygen Delivery Method Room Air 03/25/25 08:39 BMI result Body Mass Index 24.5 Assessment & Plan Assessment & Plan (1) Sacroiliitis: Code(s): M46.1 - Sacroiliitis, not elsewhere classified Category: Medical (2) Sacroiliac joint pain: Code(s): M53.3 - Sacrococcygeal disorders, not elsewhere classified Category: Medical Plan Left therapeutic Sacroiliac joint injection. Informed consent was explained thoroughly to the patient.? All questions about benefits and risks for the procedure were answered. Patient came to the operating room and was positioned prone on the operating table with the pillow under the abdomen.? The lower back and buttocks of the patient were prepped with ChloraPrep prepped and draped with sterile utility towels.? Sterilely draped C-arm was brought over the operating field and sq picture of patient's pelvis was demonstrated on the screen.? For the left joint tilting C-arm contralateral to the site of the joint the most posterior portion of the joints was superimposed with anterior silhouette of the joint.? Skin was injected in the projection of the joint slightly medial to the location of the joint with 25 gauge 1/2 inch needle using local lidocaine 2% mixed with ropivacaine 0.5% one to one. After that 22 gauge 3 and 1/2 inch needle was driven to the left joint in tunnel vision fashion.? When needle entered the joint capsule injection of the contrast was performed demonstrating intra-articular and minimally periarticular spread of the contrast.? After that 5 cc. of ropivacaine 0.5% mixed with Kenalog 40 mg was injected into each joint. Upon completion of the injections the needles were removed, Band-Aids were applied.? Upon completion of the injection patient was taken outside of the operating room to the recovery room where recovered uneventfully. Orders: Orders FL guidance in treatment room Today M46.1 - Sacroiliitis, not elsewhere classified Coding Level of Care Code Procedure Only Diagnoses Sacroiliitis M46.1 Sacroiliac joint pain M53.3
== END 2025-03-25 09:00 | disposition home or self-care (01) ==
LOC: HO.PMCPRC 08:32
PROVIDERS: PCP Internal Medicine Geriatric Medicine; Visit Provider Anesthesiology
DX: M46.1 Sacroiliitis, not elsewhere classified (principal); M53.3 Sacrococcygeal disorders, not elsewhere classified
CPT/HCPCS: 27096